=== PATIENT | female | born 1985 | race Caucasian/White ===

== ENCOUNTER → 2017-01-31 | Outpatient (REF) | payer MEDICAID | LOC: M LAB REF 17:29 | PROVIDERS: ATTEND Advanced Practice Midwife | DX: Z12.4 Encounter for screening for malignant neoplasm of cervix (principal) ==

== ENCOUNTER → 2017-03-19 | Outpatient (CLI) | payer OTHER | LOC: M LAB 12:19 | PROVIDERS: ATTEND Advanced Practice Midwife | DX: R10.31 Right lower quadrant pain (principal) ==

== ENCOUNTER → 2017-05-22 | Outpatient (CLI) | payer OTHER ==
--- NOTE | 2017-05-23 04:10 | REP ---
Clinical: Neck pain . Technique: AP, lateral, flexion/extension, bilateral oblique, and open-mouth views. Findings: Alignment and lordosis is maintained. There is no evidence for acute fracture / compression injury or subluxation. No significant degenerative changes are appreciated. Oblique views demonstrate patent neural foramen. Open mouth view demonstrates normal C1-C2 articulation and odontoid process. Impression: Normal cervical spine series. Signed by Jaspreet Lomeli MD 05/23/2017 04:02 A
== END ==
LOC: M RAD 11:59
PROVIDERS: ATTEND Physician Assistant Medical
DX: M54.2 Cervicalgia (principal)

== ENCOUNTER → 2018-01-10 | Outpatient (REF) | payer OTHER ==
[2018-01-10 17:29] LABS: HEMOGLOBIN 12.9 g/dl (12.0-16.0); MEAN CORPUSCULAR HEMOGLOBIN 30.9 pg (27.0-33.0); MEAN CORPUSCULAR HGB CONC 33.9 g/dl (32.0-36.5); MEAN CORPUSCULAR VOLUME 91.1 fl (80.0-96.0); PLATELET COUNT, AUTOMATED 212 10^3/uL (150-450); RED BLOOD COUNT 4.17 10^6/uL (4.00-5.40); RED CELL DISTRIBUTION WIDTH 12.7 % (11.5-14.5); WHITE BLOOD COUNT 4.4 10^3/uL (4.0-10.0)
[2018-01-10 18:06] LABS: ALBUMIN 4.5 GM/DL (3.2-5.2); ALKALINE PHOSPHATASE 41 U/L (45-117); ALT/SGPT 25 U/L (12-78); ANION GAP 8 MEQ/L (8-16); AST/SGOT 11 U/L (7-37); BILIRUBIN,TOTAL 0.4 MG/DL (0.2-1.0); BLOOD UREA NITROGEN 13 MG/DL (7-18); CALCIUM LEVEL 9.1 MG/DL (8.5-10.1); CARBON DIOXIDE LEVEL 23 MEQ/L (21-32); CHLORIDE LEVEL 111 MEQ/L (98-107); CREATININE FOR GFR 1.03 MG/DL (0.55-1.30); GLOMERULAR FILTRATION RATE > 60.0 (>60); GLUCOSE, FASTING 81 MG/DL (70-100); POTASSIUM SERUM 4.2 MEQ/L (3.5-5.1); SODIUM LEVEL 142 MEQ/L (136-145); TOTAL PROTEIN 7.5 GM/DL (6.4-8.2)
[2018-01-10 18:23] LABS: APPEARANCE, URINE CLEAR (CLEAR); BACTERIA, URINE AUTO 1+ (NEGATIVE); BILIRUBIN, URINE AUTO NEGATIVE (NEGATIVE); BLOOD, URINE BLOOD NEGATIVE (NEGATIVE); COLOR, URINE STRAW (YELLOW); GLUCOSE, URINE (UA) AUTO NEGATIVE (NEGATIVE); KETONE, URINE AUTO NEGATIVE (NEGATIVE); LEUKOCYTE ESTERASE, URINE AUTO NEGATIVE (NEGATIVE); NITRITE, URINE AUTO NEGATIVE (NEGATIVE); PROTEIN, URINE AUTO NEGATIVE (NEGATIVE); RBC, URINE AUTO 2 /HPF (0-3); SPECIFIC GRAVITY URINE AUTO 1.003 (1.002-1.035); SQUAMOUS EPITHELIAL CELL UR AU 1 /HPF (0-6); UROBILINOGEN, URINE AUTO 0.2 mg/dL (0.0-2.0); WBC, URINE AUTO 1 /HPF (0-3)
[2018-01-10 18:25] LABS: HIV 1&2 SCREEN CENTAUR NEGATIVE (NEGATIVE)
== END ==
LOC: M SFHCLERA 10:49
DX: Z20.9 Contact with and (suspected) exposure to unspecified communicable disease (principal); R53.83 Other fatigue; R35.0 Frequency of micturition

== ENCOUNTER → 2018-01-16 | Outpatient (REF) | payer OTHER ==
[2018-01-16 16:49] LABS: FERRITIN 36 NG/ML (8-252); FREE T4 0.84 NG/DL (0.76-1.46); IRON (FE) 33 UG/DL (50-170)
[2018-01-16 16:50] LABS: TESTOSTERONE 11 NG/DL (14-76)
[2018-01-19 08:06] LABS: ANTINUCLEAR ANTIBODIES DIRECT Negative (Negative); DEHYDROEPIANDROSTERONE SULFATE 155.6 ug/dL (84.8-378.0); ZINC PLASMA 79 ug/dL (56-134)
== END ==
LOC: M SFHCLERA 10:30
DX: L65.9 Nonscarring hair loss, unspecified (principal)
CPT/HCPCS: 83540

== ENCOUNTER → 2018-01-28 | Outpatient (REF) | payer OTHER | LOC: M SFHCLERA 10:15 | DX: J02.9 Acute pharyngitis, unspecified (principal) ==

== ENCOUNTER → 2018-03-20 | Outpatient (REF) | payer OTHER ==
[2018-03-27 14:16] LABS: HPV HYBRID CAPTURE II Negative (Negative)
== END ==
LOC: M LAB REF 10:49
DX: Z12.4 Encounter for screening for malignant neoplasm of cervix (principal)

== ENCOUNTER → 2018-11-11 | Outpatient (CLI) | payer OTHER ==
[2018-11-11 13:52] LABS: BASO # 0.1 10^3/uL (0.0-0.2); BASO % 0.7 % (0.0-1.0); EOS # 0.2 10^3/uL (0.0-0.50); EOS % 2.1 % (0.0-3.0); HEMATOCRIT 35.3 % (36.0-47.0); HEMOGLOBIN 12.2 g/dl (12.0-15.5); LYMPH # 1.9 10^3/uL (1.5-4.5); LYMPH % 25.9 % (24.0-44.0); MEAN CORPUSCULAR HEMOGLOBIN 30.7 pg (27.0-33.0); MEAN CORPUSCULAR HGB CONC 34.6 g/dl (32.0-36.5); MEAN CORPUSCULAR VOLUME 88.7 fl (80.0-96.0); MONO # 0.4 10^3/uL (0.0-0.8); MONO % 5.9 % (0.0-5.0); NEUTROPHILS # 4.7 10^3/uL (1.8-7.7); PLATELET COUNT, AUTOMATED 211 10^3/uL (150-450); RED BLOOD COUNT 3.98 10^6/uL (4.00-5.40); WHITE BLOOD COUNT 7.3 10^3/uL (4.0-10.0)
[2018-11-11 15:29] LABS: CHLAMYDIA DNA AMPLIFICATION NEGATIVE (NEGATIVE); GC DNA AMPLIFICATION NEGATIVE (NEGATIVE)
[2018-11-12 11:29] LABS: HEPATITIS C VIRUS ABY INDEX 0.1 INDEX (<0.8); HIV 1&2 SCREEN CENTAUR NEGATIVE (NEGATIVE); RUBELLA IgG QUALITATIVE IMMUNE (IMMUNE)
== END ==
LOC: M SMT 11:54
PROVIDERS: ATTEND Advanced Practice Midwife
DX: Z36.89 Encounter for other specified antenatal screening (principal)

== ENCOUNTER → 2018-12-22 | Outpatient (REF) | payer OTHER ==
[2018-12-22 22:10] LABS: CHLAMYDIA DNA AMPLIFICATION NEGATIVE (NEGATIVE); GC DNA AMPLIFICATION NEGATIVE (NEGATIVE)
== END ==
LOC: M SFHCLERA 14:03
PROVIDERS: ATTEND Nurse Practitioner Family
DX: R11.2 Nausea with vomiting, unspecified (principal)

== ENCOUNTER → 2019-01-13 | Outpatient (CLI) | payer OTHER ==
--- NOTE | 2019-01-14 04:46 | REP ---
Clinical: Anatomical evaluation. Comparison: None . Findings: Examination demonstrates a single live intrauterine in variable presentation. motion is identified by technologist. Placenta is noted posterior and grade grade zero without evidence for placenta previa or abruption. Amniotic fluid volume is normal. Cervix measures 3.9 cm in length and appears closed. No evidence for nuchal cord. Gestational age by LMP 17 weeks 5 days with NIKOLE 06/18/2019 . Gestational age by current measurements 18 weeks 1 day with NIKOLE 06/15/2019 . FHR equals 146 beats per minute. BPD 3.9 cm 17 weeks 5 days HC 15.1 cm 18 weeks 1 day AC 12.9 cm 18 weeks 3 days FL 2.6 cm 18 weeks 0 days HL 2.7 cm 18 weeks 3 days HC/AC ratio 1.17 Estimated weight 229 grams ( 67 percentile). Anatomical assessment demonstrates normal structures including cranium, choroid plexus, cavum, cerebellum/posterior fossa, facial features, lungs, four-chamber heart/ventricular outflow tracts, diaphragm, stomach, cord insertion/three-vessel cord, kidneys/bladder, spine, and extremities. Echogenic focus within the left cardiac ventricle likely prominent chordae tendineae Impression: 1. Single live intrauterine in variable presentation demonstrating appropriate interval growth. 2. Possible prominent chordae tendineae. Remainder of the anatomical assessment is complete and normal. Electronically Signed by Jaspreet Lomeli MD 01/14/2019 04:37 A
== END ==
LOC: M RAD 11:09
PROVIDERS: ATTEND Advanced Practice Midwife
DX: Z34.82 Encounter for supervision of other normal pregnancy, second trimester (principal)

== ENCOUNTER → 2019-03-30 | Outpatient (CLI) | payer OTHER ==
[2019-03-30 17:27] LABS: HEMOGLOBIN 11.5 g/dl (12.0-15.5); MEAN CORPUSCULAR HEMOGLOBIN 31.2 pg (27.0-33.0); MEAN CORPUSCULAR HGB CONC 32.9 g/dl (32.0-36.5); MEAN CORPUSCULAR VOLUME 94.9 fl (80.0-96.0); PLATELET COUNT, AUTOMATED 175 10^3/uL (150-450); RED BLOOD COUNT 3.69 10^6/uL (4.00-5.40); WHITE BLOOD COUNT 6.4 10^3/uL (4.0-10.0)
== END ==
LOC: M SMT 10:27
PROVIDERS: ATTEND Advanced Practice Midwife
DX: Z36.89 Encounter for other specified antenatal screening (principal); Z3A.00 Weeks of gestation of pregnancy not specified

== ENCOUNTER → 2019-05-26 | Outpatient (CLI) | payer OTHER | LOC: M SMT 09:30 | PROVIDERS: ATTEND Advanced Practice Midwife | DX: O09.523 Supervision of elderly multigravida, third trimester (principal) ==

== ENCOUNTER 2019-06-15 10:29 | Inpatient (IN) | payer OTHER ==
[2019-06-15] VITALS (11 sets, daily range): BP systolic 97–137; BP diastolic 56–87
[~2019-06-15] VITALS: Ht 157.5 cm; Wt 70.0 kg
[2019-06-15] MEDS ORDERED: LACTATED RINGER'S 1000 ML IV STA (10:44)
[2019-06-15] MEDS ORDERED: LR 1,000 ML IV SCH (10:44)
[2019-06-15 11:01] LABS: HEMATOCRIT 34.7 % (36.0-47.0); HEMOGLOBIN 11.9 g/dl (12.0-15.5); MEAN CORPUSCULAR HEMOGLOBIN 30.7 pg (27.0-33.0); MEAN CORPUSCULAR HGB CONC 34.3 g/dl (32.0-36.5); MEAN CORPUSCULAR VOLUME 89.4 fl (80.0-96.0); PLATELET COUNT, AUTOMATED 149 10^3/uL (150-450); RED BLOOD COUNT 3.88 10^6/uL (4.00-5.40)
[2019-06-15] MEDS ORDERED: FENTANYL 2MCG/ML ROPIVACAINE 0.2% IN 0.9% NACL 100ML IVBAG As Ordered ONE (11:01)
[2019-06-15] MEDS ORDERED: PRENTAB9 PO (11:03)
[2019-06-15] MEDS ORDERED: ZANT150T40 PO (11:03)
[2019-06-15] MEDS ORDERED: EPIDURAL/PCA KEYS XX PRN (12:30)
[2019-06-15] MEDS ORDERED: LACTATED RINGER'S 1000 ML IV PRN (12:30)
[2019-06-15] MEDS ORDERED: EPIDURAL COMMENT XX SCH (12:30)
[2019-06-15] MEDS ORDERED: ONDANSETRON 4MG/2ML VIAL (J2405) IV PRN (12:30)
[2019-06-15] MEDS ORDERED: ePHEDrine SULFATE 25 MG/5 ML(5MG/ML) SYRINGE IV PRN (12:30)
[2019-06-15] MEDS ORDERED: FENTANYL/ROPIVACAINE/NACL BAG 100 ML EPIDURAL SCH (12:30)
[2019-06-15] MEDS ORDERED: NALOXONE INJ 0.4 MG/1 ML VIAL (J2310) IV PRN (12:30)
[2019-06-15] MEDS ORDERED: REFRIGERATOR IV KEYS XX PRN (12:30)
[2019-06-15] MEDS ORDERED: diphenhydrAMINE INJ 50MG/ML VIAL (J1200) IV PRN (12:30)
[2019-06-15] MEDS ORDERED: OXYTOCIN 30 UNITS IN 0.9% NaCl 500ML IV BAG (J2590) As Ordered ONE (15:30)
[2019-06-15] MEDS ORDERED: OXYTOCIN DRIP 30 UNITS in APPROPRIATE DILUENT 1 EA IV SCH (17:23)
[2019-06-15] MEDS ORDERED: RHOGAM 300 MCG (1500 IU) INJ (J2790) IM SCH (17:30)
[2019-06-15] MEDS ORDERED: ANUSOL HC CREAM 30GM TOP PRN (17:30)
[2019-06-15] MEDS ORDERED: DIBUCAINE 1% OINTMENT 30GM TOP PRN (17:30)
[2019-06-15] MEDS ORDERED: METHYLERGONOVINE MALEATE 0.2 MG TAB PO PRN (17:30)
[2019-06-15] MEDS ORDERED: MEASLES,MUMPS,RUBELLA VACCINE INJ (MMR-II) (90707) SC SCH (17:30)
[2019-06-15] MEDS ORDERED: DOCUSATE SODIUM 100 MG CAP PO PRN (17:30)
[2019-06-15] MEDS ORDERED: IBUPROFEN 600 MG TAB PO PRN (17:30)
[2019-06-15] MEDS ORDERED: ACETAMINOPHEN TAB 650MG DOSE (2X325MG) PO PRN (17:30)
[2019-06-15] MEDS ORDERED: SLF 3 ML SYR IV PRN (18:45)
[2019-06-15] MEDS: IBUPROFEN 800 MG TAB PO PRN (20:11)
[2019-06-15] MEDS: SLF 3 ML SYR IV SCH (20:12)
--- NOTE | 2019-06-15 21:49 | HPE ---
DATE OF ADMISSION: 06/15/2019 Patient is a 33-year-old female who is a 2, para 1-0-0-1 at 39 weeks, 4 days gestation with an estimated date of delivery (NIKOLE) of 06/18/2019 based off of her last menstrual period (LMP) and consistent with her first trimester ultrasound. Patient's has been complicated by advanced maternal age. She presents to labor and delivery with complaints of contractions and spontaneous rupture of clear fluid that occurred at about 10:00 o'clock. She reports active movement. She reports bloody show. PAST MEDICAL HISTORY: She had a seizure at the age of 23 and nothing since and a history of human papillomavirus (HPV). SURGICAL HISTORY: Shoulder surgery and two spinal surgeries. SOCIAL HISTORY: Patient is . She denies any history of tobacco use. She denies any history of alcohol or illicit drug use prior to or during . FAMILY HISTORY: Not contributory. ALLERGIES: No known drug allergies. CURRENT MEDICATIONS: - vitamins PAST PREGNANCIES: October 2011 at 41 weeks she had a vaginal delivery of a living male weighing 6 pounds, 12 ounces. LABORATORY DATA: Blood type is O positive with an antibody screen that is negative. Her hemoglobin and hematocrit is 12.2 and 35.3 in her first trimester with platelets of 211. She is immune to Rubella. VDRL is nonreactive. Urine is no growth. Hepatitis B surface antigen is negative. HIV is negative. Gonorrhea and chlamydia are both negative. Hepatitis C is nonreactive. She declined genetic testing. Diabetic screen is 69 with a hemoglobin and hematocrit in her third trimester of 11.5 and 35 with platelets of 175. Her HIV in the third trimester is negative and her GBS status is negative. HEART RATE: 145, moderate variability, positive accelerations, no decelerations. Contractions every 2-3 minutes. VITAL SIGNS: Blood pressure is 137/87, heart rate is 88. STERILE VAGINAL EXAM (SVE): 4 cm, 90% effaced, -1 station, moderate bloody show and no bag of fluid felt during exam. Cephalic presentation noted with vaginal exam. PHYSICAL ASSESSMENT: GENERAL: Alert and oriented times three. RESPIRATORY: Regular rate and rhythm between contractions with no use of accessory muscles. ABDOMEN: Gravid. Nontender to touch. LOWER EXTREMITIES: Generalized edema with no pitting. No clonus noted. ASSESSMENT: Intrauterine (IUP) at 39 weeks, 4 days gestation, spontaneous rupture of membrane, active labor, category 1 heart rate tracing, negative group B Streptococcus (GBS). PLAN: Admit to labor and delivery. Out of bed ad yeni. Clear liquid diet. IV and labs per unit protocol. Lactated Ringers to be started with an 800 mL bolus. Patient desires epidural. Anesthesia consult. Anticipate cervical change and spontaneous vaginal delivery.
[2019-06-16 05:54] VITALS: BP 115/59
[2019-06-16] MEDS: SLF 3 ML SYR IV SCH ×3 (06:00→22:00)
[2019-06-16] MEDS: IBUPROFEN 800 MG TAB PO PRN ×3 (07:38→23:52)
[2019-06-16] MEDS: PRENATAL VITAMINS CHEWABLE TABLET PO SCH (07:38)
[2019-06-16] MEDS: ACETAMINOPHEN 500 MG TAB PO PRN ×2 (10:26→19:42)
[2019-06-16 18:04] VITALS: BP 119/57
--- NOTE | 2019-06-16 18:09 | DN ---
DATE: OF DELIVERY 06/15/2019 at 1542 STATUS: Delivered, spontaneous vaginal delivery. PROVIDER: Loreta Mclaughlin CNM, [facility] ANESTHESIA: Epidural. ESTIMATED BLOOD LOSS: 250 mL. FINDINGS: Male, 7 pounds 14 ounces, 3560 grams, scores 8/9. Patient is a 33-year-old female who is now a 2, para 2-0-0-2 at 39 weeks 4 days who presented to labor and delivery in spontaneous labor with spontaneous rupture of membranes. The patient progressed to fully dilated at 1523 and pushed to a living male at 1542 in the occiput anterior (OA) position, restitution to right occiput anterior (AMALIA). The anterior shoulder delivered with ease, and the corpus immediately followed. The baby was placed on the maternal abdomen active and crying. The cord was clamped times two after pulsations ceased and caught by the father of the baby. A 3-vessel cord was noted. The placenta delivered spontaneously and intact at 1548. Uterine hemostasis was achieved via rapid infusion of intravenous (IV) Pitocin and fundal massage. The vagina, cervix, and perineum were inspected and found to have a first-degree perineal laceration that was not bleeding, and there was no need for repair. Mom plans to breast-feed her . Both the mother and baby are in stable condition. All counts of instruments and sponges are correct.
[2019-06-17 05:47] VITALS: BP 124/67
[2019-06-17] MEDS: ACETAMINOPHEN 500 MG TAB PO PRN (05:54)
[2019-06-17] MEDS: SLF 3 ML SYR IV SCH (06:00)
[2019-06-17] MEDS: PRENATAL VITAMINS CHEWABLE TABLET PO SCH (08:35)
== END 2019-06-17 11:44 | disposition home or self-care (01) | DRG 560 ==
LOC: M LDI 10:29 → M OBS 17:53
PROVIDERS: ADMIT Advanced Practice Midwife; ATTEND Advanced Practice Midwife
PROC: 10E0XZZ Delivery of Products of Conception, External Approach (ICD-10-PCS; principal; 2019-06-15)
DX: O70.0 First degree perineal laceration during delivery (principal); Z3A.39 39 weeks gestation of pregnancy; Z37.0 Single live birth

== ENCOUNTER → 2020-07-05 | Outpatient (CLI) | payer OTHER ==
[~2020-07-05] MED LIST: PRENTAB9 PO; ZANT150T40 PO
--- NOTE | 2020-07-27 08:07 | REP ---
FIRST TRIMESTER OBSTETRICAL ULTRASOUND CLINICAL: Dating and viability. TECHNIQUE: Transabdominal obstetrical ultrasound with color Doppler evaluation. FINDINGS: Ultrasound examination demonstrates single live early intrauterine . Biometrical measurements correspond to 13 weeks 6 days gestational age with estimated date of delivery 01/04/2021. heart rate equals 161 beats per minute. No gross abnormalities are identified. Amniotic fluid volume is normal. Placenta is posterofundal and grade 0. IMPRESSION: Single live early intrauterine with measurements at 13 weeks 6 days by current biometrical measurements. Complete anatomical assessment should be performed at 19-20 weeks. No gross abnormalities are identified. MTDD
== END ==
LOC: M WHC 12:33
PROVIDERS: ATTEND Advanced Practice Midwife
DX: Z34.80 Encounter for supervision of other normal pregnancy, unspecified trimester (principal)

== ENCOUNTER → 2020-07-14 | Outpatient (CLI) | payer SELFPAY | LOC: M LABSMTC 11:39 | PROVIDERS: ATTEND Pediatrics | DX: Z20.828 Contact with and (suspected) exposure to other viral communicable diseases (principal) ==

== ENCOUNTER → 2020-08-23 | Outpatient (CLI) | payer OTHER ==
--- NOTE | 2020-08-23 16:29 | REP ---
INDICATION: ANATOMY. Supervision of COMPARISON: July 05, 2020. TECHNIQUE: Transabdominal obstetric sonography FINDINGS: Scanning through the gravid uterus demonstrates a viable single intrauterine gestation in cephalic lie. motion is observed and heart rate is recorded at 150 beats per minute. A posterior placenta is seen, grade 1, without evidence of placenta previa. Amniotic fluid is subjectively normal. Closed cervical length is measured at 3.4 cm transabdominally. No extrauterine abnormality is observed. Three-vessel umbilical cord is noted. There is a somewhat linear 8 mm choroid plexus cyst in the right choroid plexus. No other abnormality is observed. The following anatomic structures are identified and felt to be sonographically otherwise unremarkable: cranium, cavum, cerebellum and posterior fossa, face and profile, lungs, four-chamber heart with left and right ventricular outflow tract views, diaphragm, left-sided stomach, abdominal wall cord insertion, three-vessel umbilical cord, kidneys and bladder, spine, and upper and lower extremities. Biometry chart: BPD 4.8 cm, 20 weeks 4 days Head circumference 18.1 cm, 20 weeks 4 days Abdominal circumference 15.7 cm, 20 weeks 6 days Femur length 3.2 cm, 20 weeks 0 days Humeral length 3.1 cm 20 weeks 3 days HC/AC ratio normal 1.16 Cephalic index normal 0.73 Estimated weight 357 g, 0 lb 12 oz, 67th percentile for 20 weeks 1 day IMPRESSION: Viable single intrauterine gestation at 20 weeks 3 days by today's composite sonographic criteria. NIKOLE by today's sonography January 07, 2021. No complication identified. There is a choroid plexus cyst in the right lateral ventricle. <Electronically signed by Dmitry Ayala > 08/23/20 [id number]
== END ==
LOC: M WHC 10:25
PROVIDERS: ATTEND Obstetrics & Gynecology
DX: O35.0XX1 Maternal care for (suspected) central nervous system malformation in fetus, fetus 1 (principal); Z3A.20 20 weeks gestation of pregnancy

== ENCOUNTER → 2020-10-04 | Outpatient (CLI) | payer OTHER ==
--- NOTE | 2020-10-04 14:38 | REP ---
INDICATION: F/U ANATOMY SCAN FOR CHORIOD PLEXIS CYST - . COMPARISON: 08/23/2020. TECHNIQUE: Multiple real-time ultrasonographic images. FINDINGS: There is a single intrauterine gestation in a transverse lie with the head to the maternal left. The placenta is posterior, grade 0 without previa. The umbilical cord insertion is located centrally on the placenta. The heart rate is 134 beats per minute. Next amniotic fluid index is 10.9 (9.7-22.3). The composite gestational age is 26 weeks 4 days. The NIKOLE is 3 10/16/2021. Gestational age by LMP is 26 weeks 1 day with a knee NIKOLE of 01/09/2021. Estimated weight is 901 gm /1 lb, 15 oz. This is the 42nd percentile for 26 weeks 1 day. On the prior study a choroid plexus cyst was identified. The choroid plexus is not adequately demonstrated on the study today because of position. There remainder of the anatomy is unremarkable as previously. IMPRESSION: The choroid plexus is not optimally demonstrated on the study today because of position. The remainder of the anatomy is unremarkable as previously. <Electronically signed by Sohail Diana > 10/04/20 [id number]
== END ==
LOC: M WHC 10:30
PROVIDERS: ATTEND Advanced Practice Midwife
DX: Z34.82 Encounter for supervision of other normal pregnancy, second trimester (principal); Z3A.26 26 weeks gestation of pregnancy

== ENCOUNTER → 2020-10-18 | Outpatient (CLI) | payer OTHER ==
[2020-10-18 13:07] LABS: HEMATOCRIT 30.5 % (36.0-47.0); HEMOGLOBIN 10.1 g/dl (12.0-15.5); MEAN CORPUSCULAR HEMOGLOBIN 30.8 pg (27.0-33.0); MEAN CORPUSCULAR HGB CONC 33.1 g/dl (32.0-36.5); PLATELET COUNT, AUTOMATED 164 10^3/uL (150-450); RED BLOOD COUNT 3.28 10^6/uL (4.00-5.40); WHITE BLOOD COUNT 8.5 10^3/uL (4.0-10.0)
== END ==
LOC: M LAB 11:19
PROVIDERS: ATTEND Obstetrics & Gynecology
DX: Z34.83 Encounter for supervision of other normal pregnancy, third trimester (principal)

== ENCOUNTER → 2020-11-01 | Outpatient (CLI) | payer OTHER ==
--- NOTE | 2020-11-01 15:13 | REP ---
INDICATION: F/U CHORIOD PLEXUS CYST COMPARISON: 10/04/2020 TECHNIQUE: Transabdominal obstetrical ultrasound with color Doppler evaluation. FINDINGS: Examination demonstrates a single live intrauterine in cephalic presentation. motion is identified by technologist. Placenta is noted posterior and grade 2 without evidence for placenta previa or abruption. Amniotic fluid volume is normal. Cervix measures 3.1 cm in length and appears closed.. Gestational age by LMP 30 weeks 1 day with NIKOLE 01/09/2021. Gestational age by current measurements 31 weeks 0 days with NIKOLE 01/03/2021. FHR equals 150 beats per minute. ENRIQUE: 12.2 cm (9.0-23.4) Estimated weight 1574 grams (49thpercentile). Anatomical assessment demonstrates normal structures including normal appearance of the choroid plexus without cysts. IMPRESSION: Single live advanced gestation in cephalic presentation demonstrating appropriate estimated weight and growth. Evaluation of the choroid plexus appears normal and without cystic change. <Electronically signed by Jaspreet Lomeli > 11/01/20 [id number]
== END ==
LOC: M WHC 13:41
PROVIDERS: ATTEND Obstetrics & Gynecology
DX: Z34.83 Encounter for supervision of other normal pregnancy, third trimester (principal); Z3A.31 31 weeks gestation of pregnancy

== ENCOUNTER → 2020-12-06 | Outpatient (REF) | payer OTHER | LOC: M LAB REF 16:27 | PROVIDERS: ATTEND Obstetrics & Gynecology | DX: Z34.83 Encounter for supervision of other normal pregnancy, third trimester (principal) ==

== ENCOUNTER 2021-01-10 14:01 | Inpatient (IN) | payer OTHER ==
[~2021-01-10] VITALS: Ht 157.5 cm; Wt 69.5 kg
[2021-01-10 14:20] VITALS: BP 89/58
[2021-01-10] MEDS ORDERED: LACTATED RINGER'S 1000 ML IV STA (14:24)
[2021-01-10] MEDS ORDERED: LR 1,000 ML IV SCH (14:24)
[2021-01-10] MEDS ORDERED: OXYTOCIN 30 UNITS IN 0.9% NaCl 500ML IV BAG (J2590) As Ordered ONE (15:39)
[2021-01-10 15:49] VITALS: BP 101/57
[2021-01-10 16:00] LABS: HEMATOCRIT 32.2 % (36.0-47.0); HEMOGLOBIN 10.6 g/dl (12.0-15.5); MEAN CORPUSCULAR HEMOGLOBIN 29.9 pg (27.0-33.0); MEAN CORPUSCULAR HGB CONC 32.9 g/dl (32.0-36.5); PLATELET COUNT, AUTOMATED 176 10^3/uL (150-450); RED BLOOD COUNT 3.54 10^6/uL (4.00-5.40); WHITE BLOOD COUNT 12.5 10^3/uL (4.0-10.0)
[2021-01-10] MEDS ORDERED: MEASLES,MUMPS,RUBELLA VACCINE INJ (MMR-II) (90707) SC SCH (16:30)
[2021-01-10] MEDS ORDERED: OXYTOCIN DRIP 30 UNITS in IV 1 EA IV SCH (16:30)
[2021-01-10] MEDS ORDERED: DIBUCAINE 1% OINTMENT 30GM TOP PRN (16:30)
[2021-01-10] MEDS ORDERED: IBUPROFEN 600MG TAB PO PRN (16:30)
[2021-01-10] MEDS ORDERED: ACETAMINOPHEN TAB 650MG DOSE (2X325MG) PO PRN (16:30)
[2021-01-10] MEDS ORDERED: RHOGAM 300 MCG (1500 IU) INJ (J2790) IM SCH (16:30)
[2021-01-10] MEDS ORDERED: DOCUSATE SODIUM 100MG CAPSULE PO PRN (16:30)
--- NOTE | 2021-01-10 16:36 | DNPDOC ---
[facility] Delivery Note Delivery Note DATE OF DELIVERY: 01/10/2021 PREDELIVERY DIAGNOSIS: 40w1d gestation and labor/SROM. POST DELIVERY DIAGNOSIS: Delivered. PROCEDURE: Spontaneous vaginal delivery HIDE SHAKER: Dr. Pura King MD ANESTHESIA: 1% lidocaine for repair ESTIMATED BLOOD LOSS: 200 mL. FINDINGS: 7 pound 15 ounce (3590g) male , Score 8/9 DELIVERY SUMMARY: Candy is a 35yo [id number] s/p uncomplicated at 1556 on 01/10/21 after presenting in active labor with SROM at 40w1d. She was 4cm in the office before being sent to L&D and very quickly progressed to C/C/+1, at which point she began to push. With excellent maternal effort, infant delivered OA, restituted GIFTY. Right anterior shoulder quickly delivered followed by posterior shoulder and corpus. vigorous with spontaneous cry, apgars 8/9, placed on maternal abdomen and nose/mouth suctioned with bulb suction. After 2 min, cord clamped x2 and cut by FOB. Cord blood obtained for O pos MBT. With uterine massage and traction on the cord, placenta delivered spontaneously and intact with 3 vessel centrally inserted cord. Pitocin IV given per protocol. Fundus firm at u-2cm. Inspection of perineum and vagina revealed a shawn near the urethra and a 2mll (scar tissue noted, this was the site of a prior laceration)- after anesthetizing with 1% lidocaine, these was repaired in routine fashion with 3-0 vicryl suture with excellent reapproximation and total hemostasis noted. All counts correct x2. Mom and were doing well when I left the room. MD Fernando Cassidy Katrina D MD Jan 10, 2021 16:36
[2021-01-10 16:45] VITALS: BP 125/69
[2021-01-10] MEDS: IBUPROFEN 800 MG TAB PO PRN (17:07)
--- NOTE | 2021-01-10 17:09 | HPEPDOC ---
Obstetrical History & Physical General Date of Admission Jan 10, 2021 at 14:01 History of Present Illness Candy is a 35yo with SIUP at 40w1d by lmp c/w early u/s presenting from office where she was noted to be 4cm and ariel painfully. Upon arrival as she was walking up, she had SROM. Good FM, no vaginal bleeding. 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 Past Medical History Medical History migraine Surgical History: Other (sinus surgery, adenoidectomy, right shoulder) Family History Family History patient's father has a seizure d/o and her mother has Factor V Leiden abnormality w/hx of DVT Social History Marital Status: Family situation: Spouse/partner home Psychosocial History: No pertinent psych hx * Smoker: non-smoker Alcohol: Denies Drugs: denies Allergies Coded Allergies: No Known Drug Allergies (Verified Allergy, Unknown, 06/15/19) Medications Scheduled No.137/Iron/Folic Acd ( Vitamin Tablet) 1 Each Tablet, 1 TAB PO DAILY Ranitidine Hcl (Zantac) 150 Mg Tablet, 150 MG PO BID Physical Examination Physical Examination GENERAL: Alert and oriented times three. ABDOMEN: Gravid and non-tender to touch. FETUS: Is vertex (VTX) by sterile vaginal examination (SVE) EXTREMITIES: No edema BLE Laboratory Data 24H LABS Laboratory Tests 2 01/10/21 14:35: Serology Scanned Report Hepatitis B Testing 01/10/21 14:55: Syphilis Serology NONREACTIVE 01/10/21 15:41: Nucleated Red Blood Cells % (auto) 0.0 CBC/BMP Laboratory Tests 01/10/21 15:41 Pertinent Laboratoy Data Blood Type: O+ RBC Antibody Screen: Negative HIV: Negative Hepatitis B: Negative Hepatitis C: Negative Rapid Plasma Reagin: Nonreactive Rubella: Immune Chlamydia/Gonorrhea: Negative Group B Streptococcus: Negative Glucose Tolerance Test: 98 Anatomy Ultrasound Ultrasound Date: Aug 23, 2020 Placenta Location: Posterior Normal Anatomy: Yes (choroid plexus cyst) Placenta Previa: No Steroid Therapy Steroid Therapy: No Vaginal Examination Dilation: 8 cm Effacement: 80% Station: -2 Cervical Consistency: Soft Cervical Position: Anterior Presentation: Cephalic presentation Assessment Heart Rate (FHR): 140 Variability: Moderate Accelerations: Positive Decelerations: None Tocometer Contractions: Yes Frequency: regular, every 2-5 min. Duration: greater than 60 seconds Strength: palpated as strong Assessment/Plan Assessment Candy is a 35yo with SIUP at 40w1d by lmp c/w early u/s presenting to L&D in active labor with SROM while walking up. Vitals wnl, afebrile, benign exam. Cat I FHRT. On my first SCE patient was 8/90/-2 with clear fluid noted. Cephalic by SCE. GBS neg. Uncomplicated PMhx and PNC. Plan Admit and orient. Assistant Statistician and consent. Diet: clear liquids Group B Streptococcus (GBS) negative Labs and intravenous (IV) per unit protocol. Lactated Ringers (LR): Bolus 800 mL, then at 125 mL/hr. Anticipate normal spontaneous delivery () Pura King MD Jan 10, 2021 17:09
[2021-01-10 17:10] VITALS: BP 114/74
[2021-01-10] MEDS ORDERED: LIDOCAINE 1% MDV 20ML VIAL INFIL ONE (17:15)
[2021-01-10 18:35] VITALS: BP 111/61
[2021-01-10] MEDS: ACETAMINOPHEN 500 MG TAB PO PRN (18:50)
[2021-01-11] MEDS: ACETAMINOPHEN 500 MG TAB PO PRN ×2 (01:28→09:09)
[2021-01-11 05:52] VITALS: BP 120/58
[2021-01-11] MEDS: IBUPROFEN 800 MG TAB PO PRN ×2 (05:59→13:46)
[2021-01-11] MEDS ORDERED: PRENATAL VITAMINS CHEWABLE TABLET PO SCH (09:00)
[2021-01-11] MEDS ORDERED: BOOSTRIX/ADACEL VACCINE (DIPHTH/PERTUSS/ACELL/TETANUS) 0.5ML SYR IM ONE (09:00)
--- NOTE | 2021-01-11 09:31 | IPNPDOC ---
Progress Note Date of Service: Jan 11, 2021 Day#: 1 Progress Note PPD 1 SUBJECT: Candy is a 35yo [id number] s/p uncomplicated at 1556 on 01/10/21 after presenting in active labor with SROM at 40w1d, doing well day # 1. She has been ambulating, voiding spontaneously without issue and tolerating regular diet. No baby feeding issues. Reports lochia is like a normal period. Denies f/c/n/v/CP/SOB. OBJECTIVE: VITAL SIGNS: Within normal limits, afebrile. Alert and oriented times three. rubs or gallops. Abdomen: Fundus firm at U-2. Soft, NTTP. Extremities: no pain with palpation of calves ASSESSMENT: Candy is a 35yo [id number] s/p uncomplicated at 1556 on 01/10/21 after presenting in active labor with SROM at 40w1d, doing well day # 1. Vitals within normal limits, afebrile, hemodynamically stable with no evidence of infection. PLAN: 1. Discharge to home today if baby able to be discharged 2. Tylenol and Motrin for pain. 3. Encourage hydration and ambulation. 4. Interested in Mirena IUD 5. Routine PP visit in 6 weeks in clinic with Dr. Colmenares 6. Discussed return precautions at length. Pura King MD VS, I&O, 24H, Fishbone Vital Signs/I&O Vital Signs Date Time Temp Pulse Resp B/P (MAP) Pulse Ox O2 Delivery O2 Flow Rate FiO2 01/11/21 05:52 98.5 87 20 120/58 (78) 98 Room Air I&O- Last 24 Hours up to 6 AM 01/11/21 05:59 Intake Total 500 ml Output Total 700 ml Balance -200 ml Laboratory Data 24H LABS Laboratory Tests 2 01/10/21 14:35: Serology Scanned Report Hepatitis B Testing 01/10/21 14:55: Syphilis Serology NONREACTIVE 01/10/21 15:41: Nucleated Red Blood Cells % (auto) 0.0 CBC/BMP Laboratory Tests 01/10/21 15:41 Pura King MD Jan 11, 2021 09:31
[2021-01-11] MEDS ORDERED: DOK1CAP7 PO (09:33)
[2021-01-11] MEDS ORDERED: IBUP80TA PO (09:33)
[2021-01-11] MEDS ORDERED: ACET-683 PO (09:33)
--- NOTE | 2021-01-11 09:35 | DS.PDOC ---
Discharge Summary General Date of Admission Jan 10, 2021 at 14:01 Date of Discharge Jan 11, 2021 Discharge Summary PROCEDURES PERFORMED DURING STAY: spontaneous vaginal delivery ADMITTING DIAGNOSES: 1. active labor at term with SROM DISCHARGE DIAGNOSES: 1. active labor at term with SROM, delivered COMPLICATIONS/CHIEF COMPLAINT: LABOR. HISTORY OF PRESENT ILLNESS/HOSPITAL COURSE: Candy is a 35yo [id number] s/p uncomplicated at 1556 on 01/10/21 after presenting in active labor with SROM at 40w1d, doing well day # 1. She has had a benign course and at time of discharge, vitals within normal limits, afebrile, hemodynamically stable with no evidence of infection. DISCHARGE MEDICATIONS: Please see below. ALLERGIES: Please see below. PHYSICAL EXAMINATION ON DISCHARGE: VITAL SIGNS: Within normal limits, afebrile. Alert and oriented times three. rubs or gallops. Abdomen: Fundus firm at U-2. Soft, NTTP. Extremities: no pain with palpation of calves Activity: no heavy lifting, vaginal rest 6 weeks LABORATORY DATA: Please see below. DIET: regular DISCHARGE INSTRUCTIONS: 1. Discharge to home today if baby able to be discharged 2. Tylenol and Motrin for pain. 3. Encourage hydration and ambulation. 4. Interested in Mirena IUD 5. Routine PP visit in 6 weeks in clinic with Dr. Colmenares 6. Discussed return precautions at length. DISCHARGE CONDITION: Stable TIME SPENT ON DISCHARGE: Greater than 20 minutes. Vital Signs/I&Os Vital Signs Date Time Temp Pulse Resp B/P (MAP) Pulse Ox O2 Delivery O2 Flow Rate FiO2 01/11/21 05:52 98.5 87 20 120/58 (78) 98 Room Air I&O- Last 24 Hours up to 6 AM 01/11/21 05:59 Intake Total 500 ml Output Total 700 ml Balance -200 ml Laboratory Data Labs 24H Laboratory Tests 2 01/10/21 14:35: Serology Scanned Report Hepatitis B Testing 01/10/21 14:55: Syphilis Serology NONREACTIVE 01/10/21 15:41: Nucleated Red Blood Cells % (auto) 0.0 CBC/BMP Laboratory Tests 01/10/21 15:41 Discharge Medications Scheduled No.137/Iron/Folic Acd ( Vitamin Tablet) 1 Each Tablet, 1 TAB PO DAILY, (Reported) Ranitidine Hcl (Zantac) 150 Mg Tablet, 150 MG PO BID, (Reported) Scheduled PRN Acetaminophen (Acetaminophen) 500 Mg Tablet, 1,000 MG PO Q6HP PRN for PAIN LEVEL 6-10 Docusate Sodium (Dok) 100 Mg Capsule, 100 MG PO BID PRN for CONSTIPATION Ibuprofen (Ibuprofen) 800 Mg Tablet, 800 MG PO Q8HP PRN for PAIN LEVEL 6-10 Allergies Coded Allergies: No Known Drug Allergies (Verified Allergy, Unknown, 06/15/19) Pura King MD Jan 11, 2021 09:35
== END 2021-01-11 19:05 | disposition home or self-care (01) | DRG 560 ==
LOC: M LDI 14:01 → M OBS 18:33
PROVIDERS: ADMIT Obstetrics & Gynecology; ATTEND Obstetrics & Gynecology
PROC: 10E0XZZ Delivery of Products of Conception, External Approach (ICD-10-PCS; principal; 2021-01-10)
PROC: 0KQM0ZZ Repair Perineum Muscle, Open Approach (ICD-10-PCS; 2021-01-10)
DX: O62.3 Precipitate labor (principal); Z3A.40 40 weeks gestation of pregnancy; O48.0 Post-term pregnancy; O70.1 Second degree perineal laceration during delivery; Z37.0 Single live birth

== ENCOUNTER → 2022-06-07 | Outpatient (CLI) | payer OTHER ==
[~2022-06-07] MED LIST changes: +ACET-683 PO; +DOK1CAP4 PO; +IBUP80TA PO
== END ==
LOC: M RAD 07:47
PROVIDERS: ATTEND Nurse Practitioner Family
DX: R10.9 Unspecified abdominal pain (principal)

== ENCOUNTER → 2022-07-25 | Outpatient (CLI) | payer OTHER | LOC: M RAD 11:12 | PROVIDERS: ATTEND Nurse Practitioner Family | DX: R06.00 Dyspnea, unspecified (principal) ==

== ENCOUNTER → 2022-09-11 | Outpatient (CLI) | payer OTHER ==
[2022-09-11 18:49] LABS: BASO % 0.8 % (0.0-1.0); EOS % 0.8 % (0.0-3.0); HEMATOCRIT 38.5 % (36.0-47.0); HEMOGLOBIN 12.5 g/dl (12.0-15.5); LYMPH # 1.5 10^3/uL (1.5-5.0); LYMPH % 42.8 % (24.0-44.0); MEAN CORPUSCULAR HEMOGLOBIN 29.6 pg (27.0-33.0); MEAN CORPUSCULAR HGB CONC 32.5 g/dl (32.0-36.5); MEAN CORPUSCULAR VOLUME 91.2 fl (80.0-96.0); MONO # 0.2 10^3/uL (0.0-0.8); MONO % 5.7 % (2.0-8.0); NEUTROPHILS # 1.8 10^3/uL (1.5-8.5); NEUTROPHILS % 49.6 % (36.0-66.0); PLATELET COUNT, AUTOMATED 221 10^3/uL (150-450); RED BLOOD COUNT 4.22 10^6/uL (4.00-5.40); WHITE BLOOD COUNT 3.5 10^3/uL (4.0-10.0)
[2022-09-11 19:44] LABS: ERYTHROCYTE SEDIMENTATION RATE 8 mm/hr (0-20)
[2022-09-12 16:24] LABS: ALBUMIN 4.2 G/DL (3.2-5.2); ALT/SGPT 40 U/L (7.0-40); BILIRUBIN,TOTAL 0.4 MG/DL (0.3-1.2); BLOOD UREA NITROGEN 13 MG/DL (9-23); CALCIUM LEVEL 9.1 MG/DL (8.5-10.1); CARBON DIOXIDE LEVEL 21 MMOL/L (20-31); CHLORIDE LEVEL 109 MMOL/L (98-107); CREATININE FOR GFR 1.04 MG/DL (0.55-1.30); GLOMERULAR FILTRATION RATE > 60.0 (>60); GLUCOSE, FASTING 96 MG/DL (60-100); POTASSIUM SERUM 4.1 MMOL/L (3.5-5.1); RHEUMATOID FACTOR QUANT < 3.5 IU/ML (<14); SODIUM LEVEL 141 MMOL/L (136-145); TOTAL PROTEIN 6.7 G/DL (5.7-8.2); VITAMIN B12 LEVEL 338 PG/ML (211-911)
[2022-09-12 18:16] LABS: FOLATE > 24.00 NG/ML (>5.4)
== END ==
LOC: M WUC 11:59
PROVIDERS: ATTEND Internal Medicine Infectious Disease
DX: A69.20 Lyme disease, unspecified (principal); M94.0 Chondrocostal junction syndrome [Tietze]; R20.3 Hyperesthesia

== ENCOUNTER → 2022-11-07 | Outpatient (REF) | payer OTHER | LOC: M LAB REF 12:13 | PROVIDERS: ATTEND Physician Assistant | DX: B34.9 Viral infection, unspecified (principal); J02.9 Acute pharyngitis, unspecified ==

== ENCOUNTER → 2022-12-05 | Outpatient (REF) | payer OTHER ==
[2022-12-05 17:19] LABS: BASO # 0.1 10^3/uL (0.0-0.2); BASO % 0.6 % (0.0-1.0); EOS # 0.1 10^3/uL (0.0-0.5); HEMATOCRIT 36.5 % (36.0-47.0); HEMOGLOBIN 12.5 g/dl (12.0-15.5); LYMPH # 2.1 10^3/uL (1.5-5.0); LYMPH % 26.2 % (24.0-44.0); MEAN CORPUSCULAR HEMOGLOBIN 31.5 pg (27.0-33.0); MEAN CORPUSCULAR HGB CONC 34.2 g/dl (32.0-36.5); MEAN CORPUSCULAR VOLUME 91.9 fl (80.0-96.0); MONO # 0.3 10^3/uL (0.0-0.8); MONO % 4.3 % (2.0-8.0); NEUTROPHILS # 5.3 10^3/uL (1.5-8.5); NEUTROPHILS % 67.6 % (36.0-66.0); PLATELET COUNT, AUTOMATED 222 10^3/uL (150-450); RED BLOOD COUNT 3.97 10^6/uL (4.00-5.40); WHITE BLOOD COUNT 7.8 10^3/uL (4.0-10.0)
[2022-12-05 17:56] LABS: ALBUMIN 4.5 G/DL (3.2-5.2); BILIRUBIN,TOTAL 0.5 MG/DL (0.3-1.2); CALCIUM LEVEL 9.2 MG/DL (8.5-10.1); CREATININE FOR GFR 1.3 MG/DL (0.55-1.30); GLOMERULAR FILTRATION RATE 48.5 (>60); POTASSIUM SERUM 4.4 MMOL/L (3.5-5.1); TOTAL PROTEIN 7.1 G/DL (5.7-8.2)
[2022-12-05 17:58] LABS: THYROID STIMULATING HORMONE 1.49 uIU/ML (0.55-4.78)
== END ==
LOC: M LAB REF 16:33
PROVIDERS: ATTEND Nurse Practitioner Family
DX: R53.83 Other fatigue (principal)

== ENCOUNTER → 2022-12-10 | Outpatient (CLI) | payer OTHER | LOC: M CARPUL 09:49 | PROVIDERS: ATTEND Nurse Practitioner Family | DX: R06.00 Dyspnea, unspecified (principal) ==

== ENCOUNTER → 2023-01-23 | Outpatient (CLI) | payer OTHER ==
[2023-01-23 22:23] LABS: BASO % 0.5 % (0.0-1.0); EOS # 0.2 10^3/uL (0.0-0.5); EOS % 2.4 % (0.0-3.0); HEMATOCRIT 36.8 % (36.0-47.0); LYMPH # 2.1 10^3/uL (1.5-5.0); LYMPH % 24.8 % (24.0-44.0); MEAN CORPUSCULAR HEMOGLOBIN 30.6 pg (27.0-33.0); MEAN CORPUSCULAR HGB CONC 32.6 g/dl (32.0-36.5); MEAN CORPUSCULAR VOLUME 93.9 fl (80.0-96.0); MONO # 0.3 10^3/uL (0.0-0.8); MONO % 3.3 % (2.0-8.0); NEUTROPHILS # 5.7 10^3/uL (1.5-8.5); NEUTROPHILS % 68.9 % (36.0-66.0); PLATELET COUNT, AUTOMATED 206 10^3/uL (150-450); RED BLOOD COUNT 3.92 10^6/uL (4.00-5.40); WHITE BLOOD COUNT 8.3 10^3/uL (4.0-10.0)
[2023-01-23 22:30] LABS: ERYTHROCYTE SEDIMENTATION RATE 1 mm/hr (0-20)
[2023-01-23 22:47] LABS: URIC ACID 5.9 MG/DL (3.1-7.8)
[2023-01-23 22:51] LABS: ALKALINE PHOSPHATASE 39 U/L (46-116); ALT/SGPT 22 U/L (7.0-40); AST/SGOT 14 U/L (<34); BILIRUBIN,TOTAL 0.4 MG/DL (0.3-1.2); BLOOD UREA NITROGEN 20 MG/DL (9-23); CALCIUM LEVEL 8.8 MG/DL (8.5-10.1); CARBON DIOXIDE LEVEL 23 MMOL/L (20-31); CHLORIDE LEVEL 108 MMOL/L (98-107); CREATININE FOR GFR 1.31 MG/DL (0.55-1.30); GLOMERULAR FILTRATION RATE 48.1 (>60); GLUCOSE, FASTING 88 MG/DL (60-100); POTASSIUM SERUM 3.6 MMOL/L (3.5-5.1); SODIUM LEVEL 140 MMOL/L (136-145); TOTAL PROTEIN 6.7 G/DL (5.7-8.2)
[2023-01-23 22:52] LABS: C REACTIVE PROTEIN QUANTITATIV < 0.40 MG/DL (<1.0)
[2023-01-23 22:53] LABS: RHEUMATOID FACTOR QUANT < 3.5 IU/ML (<14)
== END ==
LOC: M WUC 15:00
PROVIDERS: ATTEND Internal Medicine Infectious Disease
DX: M25.50 Pain in unspecified joint (principal)

== ENCOUNTER → 2023-01-31 | Outpatient (CLI) | payer OTHER ==
[2023-01-31 17:06] LABS: C REACTIVE PROTEIN QUANTITATIV < 0.40 MG/DL (<1.0)
[2023-01-31 17:08] LABS: ALBUMIN 4.1 G/DL (3.2-5.2); ALKALINE PHOSPHATASE 34 U/L (46-116); ALT/SGPT 20 U/L (7.0-40); AST/SGOT 12 U/L (<34); BILIRUBIN,TOTAL 0.4 MG/DL (0.3-1.2); BLOOD UREA NITROGEN 17 MG/DL (9-23); CALCIUM LEVEL 8.9 MG/DL (8.5-10.1); CARBON DIOXIDE LEVEL 23 MMOL/L (20-31); CHLORIDE LEVEL 108 MMOL/L (98-107); CREATININE FOR GFR 1.16 MG/DL (0.55-1.30); GLOMERULAR FILTRATION RATE 55.4 (>60); GLUCOSE, FASTING 90 MG/DL (60-100); POTASSIUM SERUM 3.8 MMOL/L (3.5-5.1); SODIUM LEVEL 138 MMOL/L (136-145); TOTAL PROTEIN 7.1 G/DL (5.7-8.2)
[2023-01-31 17:12] LABS: CPK CREATINE PHOSPHOKINASE 83 U/L (34-145)
== END ==
LOC: M WUC 12:56
PROVIDERS: ATTEND Internal Medicine Infectious Disease
DX: G51.4 Facial myokymia (principal); A69.20 Lyme disease, unspecified; M25.50 Pain in unspecified joint

== ENCOUNTER → 2023-03-27 | Outpatient (REF) | payer OTHER ==
[2023-03-27 18:45] LABS: ALBUMIN 4.1 G/DL (3.2-5.2); BILIRUBIN,TOTAL 0.4 MG/DL (0.3-1.2); CALCIUM LEVEL 8.5 MG/DL (8.5-10.1); CREATININE FOR GFR 1.44 MG/DL (0.55-1.30); GLOMERULAR FILTRATION RATE 43.1 (>60); POTASSIUM SERUM 3.6 MMOL/L (3.5-5.1); TOTAL PROTEIN 6.8 G/DL (5.7-8.2)
== END ==
LOC: M LAB REF 17:31
PROVIDERS: ATTEND Nurse Practitioner Family
DX: Z13.228 Encounter for screening for other metabolic disorders (principal)

== ENCOUNTER → 2023-06-04 | Outpatient (REF) | payer OTHER ==
[2023-06-04 18:22] LABS: BASO # 0.1 10^3/uL (0.0-0.2); BASO % 0.7 % (0.0-1.0); EOS # 0.1 10^3/uL (0.0-0.5); EOS % 1.7 % (0.0-3.0); HEMATOCRIT 36.9 % (36.0-47.0); HEMOGLOBIN 12.5 g/dl (12.0-15.5); LYMPH # 2.3 10^3/uL (1.5-5.0); LYMPH % 32.4 % (24.0-44.0); MEAN CORPUSCULAR HEMOGLOBIN 30.7 pg (27.0-33.0); MEAN CORPUSCULAR HGB CONC 33.9 g/dl (32.0-36.5); MEAN CORPUSCULAR VOLUME 90.7 fl (80.0-96.0); MONO # 0.4 10^3/uL (0.0-0.8); MONO % 5.9 % (2.0-8.0); NEUTROPHILS # 4.3 10^3/uL (1.5-8.5); NEUTROPHILS % 58.9 % (36.0-66.0); PLATELET COUNT, AUTOMATED 225 10^3/uL (150-450); RED BLOOD COUNT 4.07 10^6/uL (4.00-5.40); WHITE BLOOD COUNT 7.2 10^3/uL (4.0-10.0)
[2023-06-04 18:30] LABS: HEMOGLOBIN A1c 5.2 % (4.0-6.0)
[2023-06-04 18:54] LABS: BILIRUBIN,TOTAL 0.5 MG/DL (0.3-1.2); CALCIUM LEVEL 9.2 MG/DL (8.5-10.1); CHOLESTEROL RISK RATIO 2.46 (<5); CREATININE FOR GFR 1.19 MG/DL (0.55-1.30); GLOMERULAR FILTRATION RATE 53.8 (>60); HDL CHOLESTEROL 56.8 MG/DL (>40); LDL CHOLESTEROL 66.6 MG/DL (<100); NON-HDL-C 83.2 MG/DL; POTASSIUM SERUM 3.9 MMOL/L (3.5-5.1); TOTAL PROTEIN 6.7 G/DL (5.7-8.2)
== END ==
LOC: M LAB REF 17:54
PROVIDERS: ATTEND Nurse Practitioner Family
DX: Z13.228 Encounter for screening for other metabolic disorders (principal)

== ENCOUNTER → 2023-07-07 | Outpatient (CLI) | payer OTHER ==
[2023-07-07 15:46] LABS: APPEARANCE, URINE CLEAR (CLEAR); BACTERIA, URINE AUTO 1+ (NEGATIVE); BILIRUBIN, URINE AUTO NEGATIVE (NEGATIVE); BLOOD, URINE BLOOD 1+ (NEGATIVE); COLOR, URINE STRAW (YELLOW); GLUCOSE, URINE (UA) AUTO NEGATIVE (NEGATIVE); KETONE, URINE AUTO NEGATIVE (NEGATIVE); LEUKOCYTE ESTERASE, URINE AUTO 1+ (NEGATIVE); NITRITE, URINE AUTO NEGATIVE (NEGATIVE); PROTEIN, URINE AUTO NEGATIVE (NEGATIVE); RBC, URINE AUTO 2 /HPF (0-3); SPECIFIC GRAVITY URINE AUTO 1.006 (1.002-1.035); SQUAMOUS EPITHELIAL CELL UR AU 6 /HPF (0-6); UROBILINOGEN, URINE AUTO 0.2 mg/dL (0.0-2.0); WBC, URINE AUTO 1 /HPF (0-3)
[2023-07-07 15:48] LABS: BASO % 0.6 % (0.0-1.0); EOS # 0.1 10^3/uL (0.0-0.5); HEMATOCRIT 36.5 % (36.0-47.0); HEMOGLOBIN 12.4 g/dl (12.0-15.5); LYMPH # 2.2 10^3/uL (1.5-5.0); LYMPH % 34.4 % (24.0-44.0); MEAN CORPUSCULAR HEMOGLOBIN 30.2 pg (27.0-33.0); MONO # 0.3 10^3/uL (0.0-0.8); NEUTROPHILS # 3.7 10^3/uL (1.5-8.5); NEUTROPHILS % 57.7 % (36.0-66.0); PLATELET COUNT, AUTOMATED 198 10^3/uL (150-450); WHITE BLOOD COUNT 6.4 10^3/uL (4.0-10.0)
[2023-07-07 16:15] LABS: ERYTHROCYTE SEDIMENTATION RATE 2 mm/hr (0-20)
[2023-07-07 16:18] LABS: CREATININE,RANDOM URINE 38.1 MG/DL
[2023-07-07 16:19] LABS: TOTAL PROTEIN,RANDOM URINE < 6.0 MG/DL (0.0-14.0)
[2023-07-07 16:19] LABS: C REACTIVE PROTEIN QUANTITATIV < 0.40 MG/DL (<1.0); CPK CREATINE PHOSPHOKINASE 78 U/L (34-145); LDH LACTATE DEHYDROGENASE 110 U/L (120-246)
[2023-07-07 16:20] LABS: ALKALINE PHOSPHATASE 37 U/L (46-116); ALT/SGPT 22 U/L (7.0-40); AST/SGOT < 8 U/L (<34); BILIRUBIN,TOTAL 0.4 MG/DL (0.3-1.2); BLOOD UREA NITROGEN 22 MG/DL (9-23); CALCIUM LEVEL 8.9 MG/DL (8.5-10.1); CARBON DIOXIDE LEVEL 22 MMOL/L (20-31); CHLORIDE LEVEL 109 MMOL/L (98-107); CREATININE FOR GFR 1.23 MG/DL (0.55-1.30); GLOMERULAR FILTRATION RATE 51.7 (>60); GLUCOSE, FASTING 94 MG/DL (60-100); POTASSIUM SERUM 3.8 MMOL/L (3.5-5.1); SODIUM LEVEL 140 MMOL/L (136-145); TOTAL PROTEIN 6.9 G/DL (5.7-8.2)
[2023-07-07 16:21] LABS: COMPLEMENT C3 87.9 MG/DL (84.0-160.0); COMPLEMENT C4 20.4 MG/DL (12-36)
[2023-07-10 16:09] LABS: ALDOLASE 1.7 U/L (3.3-10.3); ANGIOTENSIN 1 CONVERTING ENZYM 15 U/L (14-82); COMPLEMENT TOTAL (CH50) 34 U/mL (>41)
== END ==
LOC: M RAD 15:00
PROVIDERS: ATTEND Internal Medicine Rheumatology
DX: R76.8 Other specified abnormal immunological findings in serum (principal); M35.3 Polymyalgia rheumatica; R53.83 Other fatigue; M21.611 Bunion of right foot; M21.612 Bunion of left foot; M20.11 Hallux valgus (acquired), right foot; M20.12 Hallux valgus (acquired), left foot; M53.3 Sacrococcygeal disorders, not elsewhere classified

== ENCOUNTER → 2024-01-29 | Outpatient (REF) | payer OTHER ==
[2024-01-29 17:18] LABS: BASO # 0.1 10^3/uL (0.0-0.2); BASO % 1.1 % (0.0-1.0); EOS # 0.1 10^3/uL (0.0-0.5); EOS % 1.6 % (0.0-3.0); HEMATOCRIT 38.2 % (36.0-47.0); HEMOGLOBIN 12.9 g/dl (12.0-15.5); LYMPH # 1.9 10^3/uL (1.5-5.0); LYMPH % 41.4 % (24.0-44.0); MEAN CORPUSCULAR HEMOGLOBIN 30.8 pg (27.0-33.0); MEAN CORPUSCULAR HGB CONC 33.8 g/dl (32.0-36.5); MEAN CORPUSCULAR VOLUME 91.2 fl (80.0-96.0); MONO # 0.2 10^3/uL (0.0-0.8); NEUTROPHILS # 2.3 10^3/uL (1.5-8.5); NEUTROPHILS % 51.7 % (36.0-66.0); PLATELET COUNT, AUTOMATED 260 10^3/uL (150-450); RED BLOOD COUNT 4.19 10^6/uL (4.00-5.40); WHITE BLOOD COUNT 4.5 10^3/uL (4.0-10.0)
[2024-01-29 17:23] LABS: ALBUMIN 4.1 G/DL (3.2-5.2); BILIRUBIN,TOTAL 0.5 MG/DL (0.3-1.2); CALCIUM LEVEL 9.3 MG/DL (8.5-10.1); CREATININE FOR GFR 1.14 MG/DL (0.55-1.30); GLOMERULAR FILTRATION RATE 56.2 (>58); POTASSIUM SERUM 4.2 MMOL/L (3.5-5.1)
== END ==
LOC: M LABWUC 16:38
PROVIDERS: ATTEND Psychiatry & Neurology Neurology
DX: R51.9 Headache, unspecified (principal)

== ENCOUNTER → 2024-03-17 | Outpatient (REF) | payer OTHER ==
[2024-03-17 12:25] LABS: TOTAL 25(OH) VITAMIN D 40.7 NG/ML (20.0-100.0)
[2024-03-17 12:26] LABS: ALBUMIN 3.8 G/DL (3.2-5.2); ALKALINE PHOSPHATASE 40 U/L (46-116); ALT/SGPT 20 U/L (7.0-40); AST/SGOT < 8 U/L (<34); BILIRUBIN,TOTAL 0.4 MG/DL (0.3-1.2); BLOOD UREA NITROGEN 15 MG/DL (9-23); CALCIUM LEVEL 9.1 MG/DL (8.5-10.1); CARBON DIOXIDE LEVEL 23 MMOL/L (20-31); CHLORIDE LEVEL 112 MMOL/L (98-107); CHOLESTEROL LEVEL 131 MG/DL (<200); CHOLESTEROL RISK RATIO 2.76 (<5); CREATININE FOR GFR 1.14 MG/DL (0.55-1.30); GLOMERULAR FILTRATION RATE 56.2 (>58); GLUCOSE, FASTING 91 MG/DL (60-100); HDL CHOLESTEROL 47.3 MG/DL (>40); LDL CHOLESTEROL 76.3 MG/DL (<100); MAGNESIUM LEVEL 2.1 MG/DL (1.8-2.4); NON-HDL-C 83.7 MG/DL; POTASSIUM SERUM 4.2 MMOL/L (3.5-5.1); SODIUM LEVEL 139 MMOL/L (136-145); THYROID STIMULATING HORMONE 2.941 uIU/ML (0.55-4.78); TOTAL PROTEIN 6.6 G/DL (5.7-8.2); TRIGLYCERIDES LEVEL 37 MG/DL (<150)
[2024-03-17 12:30] LABS: BASO # 0.1 10^3/uL (0.0-0.2); BASO % 1.4 % (0.0-1.0); EOS # 0.1 10^3/uL (0.0-0.5); EOS % 3.9 % (0.0-3.0); LYMPH # 1.7 10^3/uL (1.5-5.0); LYMPH % 46.8 % (24.0-44.0); MEAN CORPUSCULAR HGB CONC 34.2 g/dl (32.0-36.5); MEAN CORPUSCULAR VOLUME 90.7 fl (80.0-96.0); MONO # 0.3 10^3/uL (0.0-0.8); MONO % 7.2 % (2.0-8.0); NEUTROPHILS # 1.5 10^3/uL (1.5-8.5); NEUTROPHILS % 40.4 % (36.0-66.0); PLATELET COUNT, AUTOMATED 176 10^3/uL (150-450); RED BLOOD COUNT 4.19 10^6/uL (4.00-5.40); WHITE BLOOD COUNT 3.6 10^3/uL (4.0-10.0)
[2024-03-17 12:45] LABS: HEMOGLOBIN A1c 5.1 % (4.0-6.0)
== END ==
LOC: M LAB REF 11:42
PROVIDERS: ATTEND Nurse Practitioner Family
DX: R63.6 Underweight (principal); E55.9 Vitamin D deficiency, unspecified

== ENCOUNTER → 2024-05-22 | Outpatient (CLI) | payer OTHER | LOC: M WHC 08:58 | PROVIDERS: ATTEND Obstetrics & Gynecology | DX: Z12.31 Encounter for screening mammogram for malignant neoplasm of breast (principal); N63.25 Unspecified lump in the left breast, overlapping quadrants ==

== ENCOUNTER → 2024-06-16 | Outpatient (CLI) | payer OTHER | LOC: M WHC 09:06 | PROVIDERS: ATTEND Obstetrics & Gynecology | DX: R92.8 Other abnormal and inconclusive findings on diagnostic imaging of breast (principal); N60.12 Diffuse cystic mastopathy of left breast ==

== ENCOUNTER → 2024-07-23 | Outpatient (REF) | payer OTHER ==
[2024-07-23 12:49] LABS: ALBUMIN 3.8 G/DL (3.2-5.2); BILIRUBIN,TOTAL 0.6 MG/DL (0.3-1.2); CALCIUM LEVEL 9.3 MG/DL (8.5-10.1); CREATININE FOR GFR 1.13 MG/DL (0.55-1.30); GLOMERULAR FILTRATION RATE 56.8 (>58); POTASSIUM SERUM 4.3 MMOL/L (3.5-5.1); TOTAL PROTEIN 6.9 G/DL (5.7-8.2)
== END ==
LOC: M LAB REF 11:42
PROVIDERS: ATTEND Nurse Practitioner Family
DX: N18.9 Chronic kidney disease, unspecified (principal)

== ENCOUNTER → 2024-10-16 | Outpatient (REF) | payer OTHER ==
[2024-10-16 18:28] LABS: CREATININE, URINE 51.88 MG/DL
[2024-10-16 18:41] LABS: ALBUMIN 3.9 G/DL (3.2-5.2); BLOOD UREA NITROGEN 15 MG/DL (9-23); CALCIUM LEVEL 9.7 MG/DL (8.5-10.1); CARBON DIOXIDE LEVEL 25 MMOL/L (20-31); CHLORIDE LEVEL 110 MMOL/L (98-107); CREATININE FOR GFR 1.07 MG/DL (0.55-1.30); GLOMERULAR FILTRATION RATE > 60.0 (>58); GLUCOSE, FASTING 81 MG/DL (60-100); PHOSPHORUS LEVEL 3.3 MG/DL (2.5-4.9); POTASSIUM SERUM 3.9 MMOL/L (3.5-5.1); SODIUM LEVEL 142 MMOL/L (136-145)
[2024-10-16 18:43] LABS: CREATININE, SERUM 1.1 MG/DL (0.55-1.02)
== END ==
LOC: M LAB REF 17:03
PROVIDERS: ATTEND Internal Medicine Nephrology
DX: N18.31 Chronic kidney disease, stage 3a (principal)

== ENCOUNTER → 2024-10-27 | Outpatient (REF) | payer OTHER ==
[2024-10-27 17:31] LABS: BACTERIA, URINE AUTO NEGATIVE (NEGATIVE); RBC, URINE AUTO 1 /HPF (0-3); SQUAMOUS EPITHELIAL CELL UR AU 3 /HPF (0-6); WBC, URINE AUTO 0 /HPF (0-3)
== END ==
LOC: M LAB REF 16:36
PROVIDERS: ATTEND Internal Medicine Nephrology
DX: R31.21 Asymptomatic microscopic hematuria (principal)

== ENCOUNTER → 2025-03-09 | Outpatient (REF) | payer OTHER ==
[2025-03-09 13:12] LABS: BASO % 0.9 % (0.0-1.0); EOS # 0.1 10^3/uL (0.0-0.5); HEMATOCRIT 39.6 % (36.0-47.0); HEMOGLOBIN 13.2 g/dl (12.0-15.5); LYMPH # 1.9 10^3/uL (1.5-5.0); LYMPH % 43.2 % (24.0-44.0); MEAN CORPUSCULAR HEMOGLOBIN 30.4 pg (27.0-33.0); MEAN CORPUSCULAR HGB CONC 33.3 g/dl (32.0-36.5); MEAN CORPUSCULAR VOLUME 91.2 fl (80.0-96.0); MONO # 0.3 10^3/uL (0.0-0.8); MONO % 6.3 % (2.0-8.0); NEUTROPHILS % 46.4 % (36.0-66.0); PLATELET COUNT, AUTOMATED 212 10^3/uL (150-450); RED BLOOD COUNT 4.34 10^6/uL (4.00-5.40); WHITE BLOOD COUNT 4.3 10^3/uL (4.0-10.0)
[2025-03-09 13:31] LABS: ALBUMIN 3.9 G/DL (3.2-5.2); BILIRUBIN,TOTAL 0.5 MG/DL (0.3-1.2); CALCIUM LEVEL 9.4 MG/DL (8.5-10.1); CHOLESTEROL RISK RATIO 2.59 (<5); CREATININE FOR GFR 1.13 MG/DL (0.55-1.30); GLOMERULAR FILTRATION RATE 62.7 (>58); HDL CHOLESTEROL 62.7 MG/DL (>40); LDL CHOLESTEROL 88.5 MG/DL (<100); NON-HDL-C 100.3 MG/DL; POTASSIUM SERUM 4.4 MMOL/L (3.5-5.1)
[2025-03-09 13:32] LABS: THYROID STIMULATING HORMONE 2.664 uIU/ML (0.55-4.78)
== END ==
LOC: M LAB REF 12:04
PROVIDERS: ATTEND Nurse Practitioner Family
DX: Z13.220 Encounter for screening for lipoid disorders (principal); Z13.29 Encounter for screening for other suspected endocrine disorder

== ENCOUNTER → 2025-08-10 | Outpatient (REF) | payer OTHER ==
[2025-08-10 14:53] LABS: ALT/SGPT 26.0 U/L (7.0-40); AST/SGOT 14.0 U/L (<34); CALCIUM LEVEL 9.6 MG/DL (8.5-10.1); CARBON DIOXIDE LEVEL 24.0 MMOL/L (20-31); CHLORIDE LEVEL 109.0 MMOL/L (98-107); CREATININE FOR GFR 1.23 MG/DL (0.55-1.30); GLOMERULAR FILTRATION RATE 56.6 (>58); POTASSIUM SERUM 4.2 MMOL/L (3.5-5.1); SODIUM LEVEL 141.0 MMOL/L (136-145)
== END ==
LOC: M LAB REF 13:26
PROVIDERS: ATTEND Nurse Practitioner Family
DX: N18.9 Chronic kidney disease, unspecified (principal)

== ENCOUNTER → 2025-09-07 | Outpatient (CLI) | payer OTHER ==
[2025-09-07 14:37] LABS: MAGNESIUM LEVEL 2.1 MG/DL (1.8-2.4)
[2025-09-07 14:42] LABS: FREE T4 1.15 NG/DL (0.89-1.76)
== END ==
LOC: M WUC 11:21
PROVIDERS: ATTEND Nurse Practitioner Family
DX: R00.2 Palpitations (principal)

== ENCOUNTER → 2025-09-13 | Outpatient (CLI) | payer OTHER | LOC: M EKG 10:56 | PROVIDERS: ATTEND Physician Assistant | DX: R00.2 Palpitations (principal); Z53.9 Procedure and treatment not carried out, unspecified reason ==

== ENCOUNTER → 2025-09-14 | Outpatient (CLI) | payer OTHER | LOC: M WHC 13:39 | PROVIDERS: ATTEND Physician Assistant | DX: N92.6 Irregular menstruation, unspecified (principal); I86.2 Pelvic varices ==